=== PATIENT | female | born 2000 | race Two or more races ===

== ENCOUNTER 2023-05-08 11:29 | Emergency (ER) | payer OTHER ==
[~2023-05-08] VITALS: Ht 170.2 cm; Wt 91.8 kg
[2023-05-08 11:29] VITALS: TEMP 99.7
[2023-05-08] MEDS ORDERED: IBUP-1554 PO (12:28)
[2023-05-08] MEDS ORDERED: PENI500T2 PO (12:29)
[2023-05-08 12:30] VITALS: BP 147/87; PULSE 134; RESP 18
== END 2023-05-08 13:11 | disposition home or self-care (01) ==
LOC: EMS 11:29
DX: L03.211 Cellulitis of face (principal)
CPT/HCPCS: 99283; Z7502

== ENCOUNTER 2024-09-25 11:28 | Emergency (ER) | payer OTHER ==
[~2024-09-25] VITALS: Ht 170.2 cm; Wt 77.3 kg
[~2024-09-25 11:28] MED LIST: IBUP-1554 PO; PENI500T2 PO
[2024-09-25 11:31] VITALS: TEMP 98.6
[2024-09-25 12:11] LABS: BASOPHILS % (AUTO) 0.2 % (0.0-2.0); EOSINOPHILS % (AUTO) 0.3 % (1.0-6.0); HEMATOCRIT 46.9 % (36-46); HEMOGLOBIN 15.1 g/dL (12.0-16.0); LYMPHOCYTES # (AUTO) 0.3 K/uL (1.0-4.8); LYMPHOCYTES % (AUTO) 1.6 % (22.0-44.0); MEAN CORPUSCULAR HEMOGLOBIN 28.8 pg (26.0-34.0); MEAN CORPUSCULAR HGB CONC 32.3 G/dL (31.0-37.0); MEAN CORPUSCULAR VOLUME 89 fL (80-100); MONOCYTES # (AUTO) 0.5 K/uL (0.1-1.0); MONOCYTES % (AUTO) 2.8 % (2.0-9.0); PLATELET COUNT (AUTO) 300 K/uL (150-450); RED BLOOD CELL COUNT(AUTO) 5.26 MIL/uL (4.00-5.20); RED CELL DISTRIBUTION WIDTH 14.6 % (11.5-14.5); WHITE BLOOD COUNT (AUTO) 16.9 K/uL (4.5-11.0)
[2024-09-25 12:12] LABS: NEUTROPHILS % (AUTO) 95.1 % (40.0-70.0); RBC MORPHOLOGY COMMENT NORMAL RBC MORPH
[2024-09-25 12:23] LABS: ANION GAP 10 mmol/L (8-16); CARBON DIOXIDE 25 mmol/L (22-29); CHLORIDE 102 mmol/L (98-107); CREATININE 0.81 mg/dL (0.60-1.30); GLOMERULAR FILTR. RATE CALC > 60 mL/min (>60); GLUCOSE,RANDOM 109 mg/dL (70-110); LIPASE 35 U/L (16-77); POTASSIUM 4.3 mmol/L (3.5-5.1); SODIUM SERUM 137 mmol/L (136-145); UREA NITROGEN, BLOOD 13 mg/dL (7-18)
[2024-09-25 12:26] LABS: CALCIUM, TOTAL 9.5 mg/dL (8.8-10.5)
[2024-09-25] MEDS ORDERED: IOHEXOL 350 MG/ML 100 ML VIAL ONE (12:36)
[2024-09-25] MEDS ORDERED: SODIUM CHLORIDE 0.9% 100 ML ONE (12:36)
[2024-09-25 13:07] LABS: APPEARANCE,URINE HAZY (CLEAR); BILIRUBIN,URINE NEGATIVE (NEGATIVE); COLOR,URINE YELLOW (YELLOW); GLUCOSE, URINE (UA) NEGATIVE (NEGATIVE); KETONES,URINE NEGATIVE (NEGATIVE); LEUKOCYTE ESTERASE ,URINE MODERATE (NEGATIVE); NITRATE,URINE NEGATIVE (NEGATIVE); OCCULT BLOOD,URINE NEGATIVE (NEGATIVE); PH,URINE 6.5 (5.0-8.0); PROTEIN,URINE 30-70 mg/dL (NEGATIVE); UROBILINOGEN,URINE <=1.0 mg/dL (<=1.0)
[2024-09-25 13:25] LABS: BACTERIA,URINE None Seen /HPF (None Seen); RBC,URINE None Seen /HPF (0-2); SQUAMOUS EPITHELIAL CELL,UR Few /LPF (None Seen); WBC,URINE 0-2 /HPF (0-5)
[2024-09-25] MEDS: SODIUM CHLORIDE 0.9% 1,000 ML IV ONE (13:35)
[2024-09-25] MEDS: ONDANSETRON HCL 4 MG/2 ML VIAL IVP ONE (13:36)
[2024-09-25] MEDS: KETOROLAC TROMETHAMINE 30 MG/ML VIAL IVP ONE (13:36)
[2024-09-25] MEDS: FAMOTIDINE 20 MG/2 ML VIAL IVP ONE (13:36)
[2024-09-25 13:45] VITALS: BP 105/69; PULSE 99; RESP 17; O2SAT 99
[2024-09-25 14:14] LABS: INFLUENZA TYPE A NEGATIVE FOR TYPE A (NEGATIVE); INFLUENZA TYPE B NEGATIVE FOR TYPE B (NEGATIVE)
[2024-09-25 14:15] LABS: ALBUMIN 4.7 g/dL (3.4-5.0); BILIRUBIN,DIRECT 0.2 mg/dL (0.00-0.20); BILIRUBIN,TOTAL 0.8 mg/dL (0.1-1.0); TOTAL PROTEIN, SERUM 8.2 g/dL (6.4-8.2)
[2024-09-25] MEDS ORDERED: ONDA-104 PO (16:04)
== END 2024-09-25 16:40 | disposition home or self-care (01) ==
LOC: EMS 11:28
DX: K52.9 Noninfective gastroenteritis and colitis, unspecified (principal); Z98.890 Other specified postprocedural states
CPT/HCPCS: 99285; 74177; 96374; 76830; 76856; 96375; 96361; 80048; 80076; 81001; 83690; 84703; 85025; 87804; 36415; Q9967; J3490; J1885; J2405; J7030; J7050